=== PATIENT | female | born 1970 | race Caucasian/White ===

== ENCOUNTER 2017-04-25 10:56 | Emergency (ER) | payer BC ==
[2017-04-25 11:20] VITALS: BP 113/79
--- NOTE | 2017-04-25 11:57 | RAD ---
INDICATION: Left knee pain. TECHNIQUE: 4 views of the left knee were obtained. FINDINGS: The bones are in normal alignment. No joint effusion or fracture is seen. Joint spaces appear maintained. IMPRESSION: NEGATIVE EXAM.
--- NOTE | 2017-04-25 12:41 | UC ---
Knee Pain HPI - HPI Summary HPI Summary: LEFT KNEE (LATERAL PATELLAR) PAIN OVER THE LAST TWO WEEKS; HISTORY OF LEFT KNEE SURGERY 23 YEARS AGO. NO KNOWN TRAUMA. PATIENT IS A RUNNER. - History of Current Complaint Chief Complaint: UCLowerExtremity Stated Complaint: KNEE PAIN Time Seen by Provider: 04/25/17 11:22 Hx Obtained From: Patient Hx Last Menstrual Period: 04/18/17 Onset/Duration: Gradual Onset, Lasting Weeks, Still Present, Worse Since - DAILY Severity Currently: Mild Pain Intensity: 0 Pain Scale Used: 0-10 Numeric Character: Dull, Aching Aggravating Factor(s): Movement, Weight Bearing Alleviating Factor(s): Rest, Position Able to Bear Weight: Yes - Risk Factors Septic Arthritis Risk Factor: Negative Gout Risk Factor: Negative - Allergies/Home Medications Allergies/Adverse Reactions: Allergies Allergy/AdvReac Type Severity Reaction Status Date / Time Amoxicillin Allergy Severe See Comment Verified 04/25/17 11:07 Penicillins Allergy Severe See Comment Verified 04/25/17 11:07 Home Medications: Home Medications buPROPion TAB* [Wellbutrin TAB*] 300 mg PO DAILY 04/25/17 [History Confirmed 09/10] PMH/Surg Hx/FS Hx/Imm Hx Previously Healthy: Yes Other History Of: Negative For: HIV, Hepatitis B, Hepatitis C, Anticoagulant Therapy - Surgical History Surgical History: Yes Surgery Procedure, Year, and Place: ARTHROSCOPIC SURGERY LEFT KNEE 1993 LEEP PROCEDURE 1993 RIGHT HAND SURGERY 2011 WISDOM TEETH REMOVED 1987 - Family History Known Family History: Positive: Unknown - adpoted Family History: UNKNOWN - ADOPTED - Social History Occupation: Employed Full-time Lives: With Family Alcohol Use: Occasionally Alcohol Amount: 1 PER DAY Substance Use Type: None Smoking Status (MU): Never Smoked Tobacco Have You Smoked in the Last Year: No Review of Systems Constitutional: Negative Skin: Negative Eyes: Negative ENT: Negative Respiratory: Negative Cardiovascular: Negative Gastrointestinal: Negative Genitourinary: Negative Motor: Negative Neurovascular: Negative Musculoskeletal: Arthralgia, Myalgia Neurological: Negative Psychological: Negative All Other Systems Reviewed And Are Negative: Yes Physical Exam Triage Information Reviewed: Yes Appearance: Well-Appearing, No Pain Distress, Well-Nourished Vital Signs: Initial Vital Signs Temp 98.3 F 04/25/17 11:08 Pulse 63 04/25/17 11:08 Resp 16 04/25/17 11:08 BP 113/79 04/25/17 11:08 Pulse Ox 100 04/25/17 11:08 Vital Signs Reviewed: Yes ENT Exam: Normal Dental Exam: Normal Neck exam: Normal Neck: Positive: Supple, Nontender, No Lymphadenopathy Respiratory Exam: Normal Respiratory: Positive: Chest non-tender, Lungs clear, Normal breath sounds, No respiratory distress Cardiovascular Exam: Normal Cardiovascular: Positive: RRR, No Murmur, Pulses Normal, Brisk Capillary Refill Abdominal Exam: Normal Musculoskeletal: Positive: Strength Intact, ROM Intact, No Edema, Other: - LATERAL PATELLAR PAIN LEFT KNEE Neurological Exam: Normal Psychological Exam: Normal Skin Exam: Normal Knee Pain Course/Dx - Differential Dx/Diagnosis Differential Diagnosis/HQI/PQRI: Internal Derangement Of Knee, Sprain, Strain Provider Diagnoses: LEFT KNEE SPRAIN Discharge - Discharge Plan Condition: Stable Disposition: HOME Patient Education Materials: Knee Sprain (ED) Referrals: Nino Fraire MD [Medical Doctor] - Mayda Weeks MD [Primary Care Provider] - Additional Instructions: PHYSICAL THERAPY REFERRAL: You have been prescribed physical therapy. Treatments may include stretching, exercise, application of heat or cold, and other modalities. After an injury, PT can reduce swelling and pain. In recovery, PT is used to restore mobility and strength. Your specific treatment goals are: ___x__ Reduction of Swelling (EGS, US, ice as needed) __x___ Pain Reduction (EGS, US, ice as needed) TENS Pack Fitting and Instruction Wound Hydrotherapy __x___ Preservation of Mobility ___x__ Shinto of Mobility __x___ Strength Shinto ___x__ Work or Sports Hardening This instruction sheet also serves as your PHYSICAL THERAPY REFERRAL! Please take it with you to the therapist, so he/she will be aware of your diagnosis and treatment plan. You may see the physical therapist of your choice for these treatments, but may wish to check with your insurance to be sure the provider you select is covered. It's important to see the doctor to whom you have been referred for follow up.
== END 2017-04-25 12:28 | disposition home or self-care (01) ==
LOC: UCEAST 10:56
DX: S83.92XA Sprain of unspecified site of left knee, initial encounter (principal); X58.XXXA Exposure to other specified factors, initial encounter; Y93.9 Activity, unspecified; Y92.9 Unspecified place or not applicable; Z88.0 Allergy status to penicillin
CPT/HCPCS: 99212; G0463

== ENCOUNTER 2017-09-03 09:23 | Emergency (ER) | payer BC ==
[2017-09-03 09:36] VITALS: BP 124/83
--- NOTE | 2017-09-03 10:00 | UC ---
Chacorta Self Abhishek, scribed for Chyna Morales MD on 09/03/17 at 0944 . Skin Complaint HPI - HPI Summary HPI Summary: This patient is a 47 year old F presenting to [facility] with a chief complaint of a red area since a couple of days. The area of the reddness is located on the the right heel and is described to be red and containing a black spot in the middle. The skin complaint is stated to be painful upon palpation. small scab. no drainage. Pt states the symptoms are worsening (area is progressively becoming larger and redder). The patient rates the pain 1/10 in severity. Symptoms aggravated by pts shoes. Symptoms alleviated by nothing. no analgesia taken. No drainage from the area. No known fb. Pt was at her mechanist office earlier today and they referred her here for further eval. Medications Reviewed during this visit. - History of Current Complaint Chief Complaint: UCLowerExtremity Stated Complaint: RAISED SKIN ON HEEL Hx Obtained From: Patient ?: No Onset/Duration: Gradual Onset - since a few days ago, Lasting Days Skin Exposure Onset/Duration: Days Ago - a few days ago Current Severity: Mild Pain Intensity: 1 Pain Scale Used: 0-10 Numeric Location: Foot (Right) - right heel Character: Swelling, Redness, Raised, Painful Aggravating Factor(s): Clothing - shoes Alleviating Factor(s): Nothing Associated Signs & Symptoms: Positive: Diaphoresis. Negative: Drainage - Allergy/Home Medications Allergies/Adverse Reactions: Allergies Allergy/AdvReac Type Severity Reaction Status Date / Time Amoxicillin AdvReac Severe See Comment Verified 09/03/17 09:30 Penicillins AdvReac Severe See Comment Verified 09/03/17 09:30 Home Medications: Home Medications Magnesium 09/03/17 [History] cloNIDine TAB* [Catapres 0.1 MG TAB*] 09/03/17 [History] Review of Systems Constitutional: Other - diaphoresis Skin: Rash - right heel (red, raised, containing a black spot, no drainage, and painful). Negative bleeding from area of wound ENT: Negative Respiratory: Negative Cardiovascular: Negative Gastrointestinal: Negative Genitourinary: Negative Motor: Negative Musculoskeletal: Negative Neurological: Negative Psychological: Negative All Other Systems Reviewed And Are Negative: Yes PMH/Surg Hx/FS Hx/Imm Hx Previously Healthy: Yes Psychological History: Depression Other Cancer History: No Hx of Cancer Other History Of: Negative For: HIV, Hepatitis B, Hepatitis C, Anticoagulant Therapy - Surgical History Surgical History: Yes Surgery Procedure, Year, and Place: ARTHROSCOPIC SURGERY LEFT KNEE 1993;. LEEP PROCEDURE 1993;. RIGHT HAND SURGERY 2010;. WISDOM TEETH REMOVED 1987;. KIDNEY STONES STENT PLACED/REMOVAL 2014; - Family History Known Family History: Negative: Hypertension, Diabetes - Social History Occupation: Employed Full-time Lives: With Family Alcohol Use: Occasionally Alcohol Amount: 1 PER DAY Substance Use Type: None Smoking Status (MU): Never Smoked Tobacco Have You Smoked in the Last Year: No Physical Exam Triage Information Reviewed: Yes Appearance: Well-Appearing, No Pain Distress, Well-Nourished Vital Signs: Initial Vital Signs Temp 97.2 F 09/03/17 09:31 Pulse 60 09/03/17 09:31 Resp 16 09/03/17 09:31 BP 124/83 09/03/17 09:31 Pulse Ox 100 09/03/17 09:31 Eyes: Positive: Conjunctiva Clear ENT: Positive: Hearing grossly normal Dental Exam: Normal Neck: Positive: Supple, Nontender, No Lymphadenopathy Respiratory: Positive: No respiratory distress, No accessory muscle use Cardiovascular: Positive: Other: - 2+ DP, PT CBT < 2 sec Musculoskeletal Exam: Normal Neurological Exam: Normal Psychological Exam: Normal Skin: Positive: Other - Right heel Pt with quarter size area of erythema with small scab in center. No fluctuance, no warmth, no red streaking mild TTP with palpation Diagnostics - Radiology US Soft tissue Radiology Interpretation Completed By: Radiologist - US Soft tissue reveals SOFT TISSUE SWELLING, NO FOREIGN BODY IS SEEN. ED physician has reviewed this radiology report and agrees. Heel X-ray Radiology Interpretation Completed By: Radiologist - Heel X-ray reveals Soft tissue swelling without definite evidence of foreign body. ED physician has reviewed this radiology report and agrees. Course/Dx - Course Course Of Treatment: pt with area of erythema with mild discomfort. Apparent small central scab. no drainage, no fluctance. Will check xray. ultrasound for fb. anticipate epsom salt soaks, abx reassess. pt comfortable and in agreement with plan - Diagnoses Provider Diagnoses: heel wound Discharge - Discharge Plan Condition: Stable Disposition: HOME Patient Education Materials: Acute Wound Care (ED) Referrals: Mayda Weeks MD [Primary Care Provider] - Additional Instructions: - soak in warm epsom salt bath 2 times a day. Pat dry - Apply thin layer of antibiotic ointment and bandage after soaking - okay to alternate ibuprofen (Advil, Motrin) and Tylenol every 3 hours for pain - Take antibiotics as prescribed until gone - If you develop increased pain, drainage, red streaking, odor, fever or any other concerns - it is recommended you contact your doctor, return here or go to the emergency department - avoid wearing shoes that rub on this area. Alternatively, put a bulky soft object such as a sock or gauze to prevent rubbing The documentation as recorded by the Chacorta martin Abhishek accurately reflects the service I personally performed and the decisions made by me, Chyna Morales MD.
--- NOTE | 2017-09-03 10:21 | RAD ---
INDICATION: Right heel soft tissue swelling, possible foreign body. COMPARISON: There are no prior studies available for comparison. TECHNIQUE: Multiple real-time images of the right calcaneus were obtained. FINDINGS: There is a focal area of soft tissue swelling located along the posterior aspect of the calcaneus. There is a superficial small black spot visible in the center of the area swelling possibly representing an insect bite. No foreign body is seen. IMPRESSION: SOFT TISSUE SWELLING, NO FOREIGN BODY IS SEEN.
--- NOTE | 2017-09-03 10:48 | RAD ---
Indication: Right heel edema evaluate for foreign body. 3 views of the right calcaneus demonstrates no evidence of radiopaque foreign body. A small inferior calcaneal spur is noted at the Achilles tendon insertion. IMPRESSION: Soft tissue swelling without definite evidence of foreign body.
== END 2017-09-03 10:54 | disposition home or self-care (01) ==
LOC: UCEAST 09:23
DX: S91.301A Unspecified open wound, right foot, initial encounter (principal); X58.XXXA Exposure to other specified factors, initial encounter; Y92.9 Unspecified place or not applicable; M79.89 Other specified soft tissue disorders; Z88.0 Allergy status to penicillin; Z88.3 Allergy status to other anti-infective agents
CPT/HCPCS: 99212; G0463

== ENCOUNTER 2017-09-11 16:31 | Emergency (ER) | payer BC ==
[2017-09-11] MEDS ORDERED: Nitroglycerin TAB 0.4 MG* 0.4 MG TAB SL ONE (17:03)
[2017-09-11] MEDS ORDERED: Aspirin Low Dose CHEW TAB* 81 MG PO ONE (17:03)
[2017-09-11] MEDS ORDERED: NS 0.9% 1000 ML* 1,000 ML IV SCH (17:15)
--- NOTE | 2017-09-11 17:43 | RAD ---
Indication: Chest pain. Single frontal view of the chest performed at 1715 hours was reviewed. Comparison is made with previous exam dated August 12, 2015. No mediastinal shift is noted. Heart is of normal size and configuration. Lung henderson appear clear. IMPRESSION: NO ACTIVE CARDIOPULMONARY DISEASE IS NOTED.
[2017-09-11 17:47] LABS: ABS Basophils 0 10^3/ul (0-0.2); ABS Eosinophils 0.1 10^3/ul (0-0.6); ABS Lymphocytes 2.3 10^3/ul (1.0-4.8); ABS Monocytes 0.5 10^3/ul (0-0.8); ABS Neutrophils 3.9 10^3/ul (1.5-7.7); ABS Nucleated RBC 0 10^3/ul; Eosinophil % 1.1 % (0-6); Hematocrit 40 % (35-47); Hemoglobin 13.4 g/dl (12.0-16.0); Mean Corpuscular HGB Conc 34 g/dl (31-36); Mean Corpuscular Hemoglobin 28 pg (27-31); Mean Corpuscular Volume 84 fL (80-97); Mean Platelet Volume 8 um3 (7.4-10.4); Nucleated Red Blood Cells % 0; Platelet Count 234 10^3/ul (150-450); Red Blood Count 4.73 10^6/ul (4.0-5.4); Red Cell Distribution Width 14 % (10.5-15); White Blood Count 6.8 10^3/ul (3.5-10.8)
[2017-09-11 17:58] LABS: EGFR Non-African American 70.7 (>60)
[2017-09-11 18:09] LABS: INR 0.93 (0.77-1.02)
[2017-09-11] MEDS ORDERED: Al Hydrox/Mg Hydrox/Simet LIQ* 30 ML UDC PO ONE (18:10)
[2017-09-11] MEDS ORDERED: Lidocaine 2% VISCOUS* 15 ML UDC PO ONE (18:10)
--- NOTE | 2017-09-11 19:30 | ED ---
Karyn Self Thomas, scribed for Lamont Li MD on 09/11/17 at 1714 . HPI Chest Pain - HPI Summary HPI Summary: The patient is a 47 year old female presenting to the emergency department complaining of self-described panic attacks that have been occurring each day at approximately 14:00 since two days ago. The patient describes a feeling of panic, shortness of breath, and chest pain that radiates to her left arm. She additionally complains of left arm numbness. The severity of the pain at its worst was a 10/10 but decreased to a 7/10 in the emergency department. The pain is described as a pressure on her chest. Breathing techniques and movement alleviate her symptoms, while being seated aggravates her symptoms. The patient started a new oral contraceptive four days ago which caused her blood pressure to rise and led to her panic attacks. She had several episodes of shortness of breath last week and additionally complains of nausea and hot flashes last night and burping today. She denies nausea in the ED, leg pain, and abdominal pain. She denies history of blood clots, hypertension, and diabetes. - History of Current Complaint Chief Complaint: EDChestPainROMI Time Seen by Provider: 09/11/17 16:39 Hx Obtained From: Patient Hx Last Menstrual Period: 04/18/17 Onset/Duration: Started Days Ago - Two days ago., Still Present Timing: Lasting Days - two days. Initial Severity: Moderate Current Severity: Moderate Pain Intensity: 8 Pain Scale Used: 0-10 Numeric Chest Pain Location: Diffuse - radiates down left arm to 5th finger Chest Pain Radiates: Yes Chest Pain Radiates To:: Arm - Left arm down to 5th finger Character: Pressure/Squeezing - Pressure Aggravating Factor(s): Rest Alleviating Factor(s): Other: - Breathing techniques and movement Associated Signs and Symptoms: Positive: Negative - She denies nausea in the ED , leg pain, and abdominal pain., Chest Pain, Anxiety, Numbness, Shortness of Breath, Nausea - She had nausea last night but no nausea in the emergency department., Other: - Hot flashes and burping - Allergy/Home Medications Allergies/Adverse Reactions: Allergies Allergy/AdvReac Type Severity Reaction Status Date / Time Amoxicillin AdvReac Severe See Comment Verified 09/03/17 09:30 Penicillins AdvReac Severe See Comment Verified 09/03/17 09:30 Home Medications: Home Medications BuPROPion XL* [Bupropion XL*] 300 mg PO DAILY 09/11/17 [History Confirmed ] Magnesium [Magnesium] 400 mg PO DAILY 09/11/17 [History Confirmed 09/11/17] Norethindrone Acetate-Ethinyl [Lo Loestrin Fe 1 mg-10 Mcg / 10 Mcg] 1 tab PO DAILY 09/11/17 [History Confirmed 09/11/17] cloNIDine TAB* [Catapres 0.1 MG TAB*] 0.2 mg PO DAILY 09/11/17 [History Confirmed 09/11/17] PMH/Surg Hx/FS Hx/Imm Hx Endocrine/Hematology History: Denies: Hx Anticoagulant Therapy, Hx Diabetes, Hx Thyroid Disease Cardiovascular History: Denies: Hx Hypertension, Hx Pacemaker/ICD, Hx Peripheral Vascular Disease, Other Cardiovascular Problems/Disorders Respiratory History: Denies: Hx Asthma, Hx Chronic Obstructive Pulmonary Disease (COPD), Hx Lung Cancer, Hx Pneumonia, Hx Pulmonary Embolism GI History: Denies: Hx Gall Bladder Disease, Hx Gastrointestinal Bleed, Hx Ulcer, Hx Urosepsis History: Reports: Hx Kidney Stones - KIDNEY STONES Denies: Hx Renal Disease Musculoskeletal History: Denies: Hx Arthritis, Hx Rheumatoid Arthritis, Hx Osteoporosis, Hx Scoliosis Sensory History: Denies: Hx Cataracts, Hx Contacts or Glasses, Hx Glaucoma, Hx Hearing Aid Opthamlomology History: Denies: Hx Cataracts, Hx Contacts or Glasses, Hx Glaucoma Neurological History: Reports: Hx Headaches - DAILY CHRONIC HEADACHES Denies: Hx Dementia, Hx Migraine, Hx Seizures, Hx Transient Ischemic Attacks (TIA), Other Neuro Impairments/Disorders Psychiatric History: Reports: Hx Depression Denies: Hx Anxiety, Hx Panic Disorder, Hx Schizophrenia, Hx Bipolar Disorder - Cancer History Hx Chemotherapy: No Hx Radiation Therapy: No - Surgical History Surgery Procedure, Year, and Place: ARTHROSCOPIC SURGERY LEFT KNEE 1993;. LEEP PROCEDURE 1993;. RIGHT HAND SURGERY 2010;. WISDOM TEETH REMOVED 1987;. KIDNEY STONES STENT PLACED/REMOVAL 2014; Hx Anesthesia Reactions: No - Immunization History Date of Tetanus Vaccine: Unk Date of Influenza Vaccine: Philosophically opposed Infectious Disease History: No Infectious Disease History: Denies: Hx Clostridium Difficile, Hx Hepatitis, Hx Human Immunodeficiency Virus (HIV), Hx of Known/Suspected MRSA, Hx Shingles, Hx Tuberculosis, Hx Known/ Suspected VRE, Hx Known/Suspected VRSA, History Other Infectious Disease, Traveled Outside the [place] in Last 30 Days - Family History Known Family History: Positive: Unknown - adpoted Negative: Hypertension, Diabetes Family History: UNKNOWN - ADOPTED - Social History Alcohol Use: Occasionally Alcohol Amount: 1 PER DAY Substance Use Type: Reports: None Smoking Status (MU): Never Smoked Tobacco Have You Smoked in the Last Year: No Review of Systems Positive: Chest Pain Positive: Shortness Of Breath Positive: Nausea - She had nausea last night but denies nausea in the ED. Negative: Abdominal Pain Negative: Other - Leg pain Positive: Numbness All Other Systems Reviewed And Are Negative: Yes Physical Exam - Summary Physical Exam Summary: General: well-appearing, mild pain distress Skin: warm, color reflects adequate perfusion, dry Head: normal Eyes: EOMI, CHRISTINE ENT: normal Neck: supple, nontender Respiratory: CTA, breath sounds present Cardiovascular: RRR Abdomen: soft, nontender Bowel: present Musculoskeletal: normal, strength/ROM intact Neurological: normal, sensory/motor intact, A&O x3 Psychological: affect/mood appropriate Triage Information Reviewed: Yes Vital Signs On Initial Exam: Initial Vitals Temp Pulse Resp BP Pulse Ox 97.6 F 63 20 137/75 100 09/11/17 16:33 09/11/17 16:33 09/11/17 16:33 09/11/17 16:33 09/11/17 16:33 Vital Signs Reviewed: Yes - [place] Coma Scale Coma Scale Total: 15 Diagnostics - Vital Signs Vital Signs Temp Pulse Resp BP Pulse Ox 09/11/17 16:52 62 7 100 09/11/17 16:49 159/84 09/11/17 16:33 97.6 F 63 20 137/75 100 - Laboratory Lab Results: Lab Results 09/11/17 09/11/17 09/11/17 Range/Units 17:25 17:25 17:25 WBC (3.5-10.8) 10^3/ul RBC (4.0-5.4) 10^6/ul Hgb (12.0-16.0) g/dl Hct (35-47) % MCV (80-97) fL MCH (27-31) pg MCHC (31-36) g/dl RDW (10.5-15) % Plt Count (150-450) 10^3/ul MPV (7.4-10.4) um3 Neut % (Auto) (38-83) % Lymph % (Auto) (25-47) % [place] % (Auto) (1-9) % Eos % (Auto) (0-6) % Baso % (Auto) (0-2) % Absolute Neuts (auto) (1.5-7.7) 10^3/ul Absolute Lymphs (auto) (1.0-4.8) 10^3/ul Absolute Monos (auto) (0-0.8) 10^3/ul Absolute Eos (auto) (0-0.6) 10^3/ul Absolute Basos (auto) (0-0.2) 10^3/ul Absolute Nucleated RBC 10^3/ul Nucleated RBC % INR (Anticoag Therapy) 0.93 (0.77-1.02) APTT 29.7 (26.0-36.3) seconds D-Dimer, Quantitative < 200 (Less Than 230) ng/mL Sodium 135 (133-145) mmol/L Potassium 4.1 (3.5-5.0) mmol/L Chloride 101 (101-111) mmol/L Carbon Dioxide 29 (22-32) mmol/L Anion Gap 5 (2-11) mmol/L BUN 15 (6-24) mg/dL Creatinine 0.86 (0.51-0.95) mg/dL Est GFR ( Amer) 91.0 (>60) Est GFR (Non-Af Amer) 70.7 (>60) BUN/Creatinine Ratio 17.4 (8-20) Glucose 97 (70-100) mg/dL Lactic Acid (0.5-2.0) mmol/L Calcium 9.7 (8.6-10.3) mg/dL Magnesium 2.3 (1.9-2.7) mg/dL Total Bilirubin 0.30 (0.2-1.0) mg/dL AST 23 (13-39) U/L ALT 32 (7-52) U/L Alkaline Phosphatase 54 (34-104) U/L Total Creatine Kinase 52 (10-223) U/L CK-MB (CK-2) 1.1 (0.6-6.3) ng/mL Troponin I 0.00 (<0.04) ng/mL C-Reactive Protein 10.69 H (< 5.00) mg/L B-Natriuretic Peptide 37 ( - 100) pg/mL Total Protein 6.9 (6.4-8.9) g/dL Albumin 4.2 (3.2-5.2) g/dL Globulin 2.7 (2-4) g/dL Albumin/Globulin Ratio 1.6 (1-3) Lipase 55 (11.0-82.0) U/L TSH 2.14 (0.34-5.60) mcIU/mL Beta HCG, Quant 0.71 mIU/mL 09/11/17 09/11/17 Range/Units 17:25 17:25 WBC 6.8 (3.5-10.8) 10^3/ul RBC 4.73 (4.0-5.4) 10^6/ul Hgb 13.4 (12.0-16.0) g/dl Hct 40 (35-47) % MCV 84 (80-97) fL MCH 28 (27-31) pg MCHC 34 (31-36) g/dl RDW 14 (10.5-15) % Plt Count 234 (150-450) 10^3/ul MPV 8 (7.4-10.4) um3 Neut % (Auto) 57.6 (38-83) % Lymph % (Auto) 33.0 (25-47) % [place] % (Auto) 8.0 (1-9) % Eos % (Auto) 1.1 (0-6) % Baso % (Auto) 0.3 (0-2) % Absolute Neuts (auto) 3.9 (1.5-7.7) 10^3/ul Absolute Lymphs (auto) 2.3 (1.0-4.8) 10^3/ul Absolute Monos (auto) 0.5 (0-0.8) 10^3/ul Absolute Eos (auto) 0.1 (0-0.6) 10^3/ul Absolute Basos (auto) 0 (0-0.2) 10^3/ul Absolute Nucleated RBC 0 10^3/ul Nucleated RBC % 0 INR (Anticoag Therapy) (0.77-1.02) APTT (26.0-36.3) seconds D-Dimer, Quantitative (Less Than 230) ng/mL Sodium (133-145) mmol/L Potassium (3.5-5.0) mmol/L Chloride (101-111) mmol/L Carbon Dioxide (22-32) mmol/L Anion Gap (2-11) mmol/L BUN (6-24) mg/dL Creatinine (0.51-0.95) mg/dL Est GFR ( Amer) (>60) Est GFR (Non-Af Amer) (>60) BUN/Creatinine Ratio (8-20) Glucose (70-100) mg/dL Lactic Acid 0.8 (0.5-2.0) mmol/L Calcium (8.6-10.3) mg/dL Magnesium (1.9-2.7) mg/dL Total Bilirubin (0.2-1.0) mg/dL AST (13-39) U/L ALT (7-52) U/L Alkaline Phosphatase (34-104) U/L Total Creatine Kinase (10-223) U/L CK-MB (CK-2) (0.6-6.3) ng/mL Troponin I (<0.04) ng/mL C-Reactive Protein (< 5.00) mg/L B-Natriuretic Peptide ( - 100) pg/mL Total Protein (6.4-8.9) g/dL Albumin (3.2-5.2) g/dL Globulin (2-4) g/dL Albumin/Globulin Ratio (1-3) Lipase (11.0-82.0) U/L TSH (0.34-5.60) mcIU/mL Beta HCG, Quant mIU/mL Result Diagrams: 09/11/17 17:25 09/11/17 17:25 Lab Statement: Any lab studies that have been ordered have been reviewed, and results considered in the medical decision making process. - Radiology CXR Xray Interpretation: No Acute Changes - NO ACTIVE CARDIOPULMONARY DISEASE IS NOTED. Dr. Li has reviewed this report. Radiology Interpretation Completed By: Radiologist - EKG 16:38 Cardiac Rate: NL EKG Rhythm: Sinus Rhythm - [address] Segment: Normal Ectopy: None Chest Pain Course/Dx - Course Course Of Treatment: Medications reviewed. Allergies noted. BP noted and advised follow up with PMD. CHEST PAIN AND BP DECREASED AFTER NTG SL (CHEST PAIN WENT FROM 7/10 TO 5/10). CHEST PAIN WENT AWAY AFTER GI COCKTAIL (5/10 TO 0 /10). DISCUSSED ADMISSION; PATIENT DECLINED ADMISSION. SHE ALSO DECLINED A REPEAT TROPONIN TO BE DONE 6 HOURS AFTER HER CHEST PAIN ONSET. SHE PREFERS TO GO HOME AND F/U WITH HER PMD; SHE WILL RETURN IF WORSE. - Diagnoses Provider Diagnoses: Blood pressure elevated without history of HTN, Chest pain Discharge - Discharge Plan Condition: Stable Disposition: HOME Patient Education Materials: Chest Pain (ED) Referrals: Mayda Weeks MD [Primary Care Provider] - Additional Instructions: FOLLOW UP WITH YOUR DOCTOR FOR YOUR CHEST PAIN. CALL TOMORROW TO ARRANGE A CARDIAC STRESS TEST. RETURN TO THE EMERGENCY DEPARTMENT FOR ANY WORSENING OF YOUR CONDITION; CHEST PAIN, SHORTNESS OF BREATH, YOU FEEL ILL OR QUESTIONS OR CONCERNS. The documentation as recorded by the Karyn martin Thomas accurately reflects the service I personally performed and the decisions made by me, Lamont Li MD.
[2017-09-11 19:51] VITALS: BP 124/84
== END 2017-09-11 19:50 | disposition home or self-care (01) ==
LOC: ED 16:31
DX: R03.0 Elevated blood-pressure reading, without diagnosis of hypertension (principal); R07.9 Chest pain, unspecified; R06.02 Shortness of breath; R11.0 Nausea; R20.0 Anesthesia of skin
CPT/HCPCS: 36415; 71045; 80053; 82550; 82553; 83605; 83690; 83735; 83880; 84443; 84484; 84702; 85025; 85379; 85610; 85730; 86140; 93005; 99284; A9270-GY

== ENCOUNTER 2018-05-22 15:57 | Emergency (ER) | payer BC ==
[2018-05-22 16:15] VITALS: BP 121/75
--- NOTE | 2018-05-22 17:13 | UC ---
Abdominal Pain Female HPI - HPI Summary HPI Summary: 48-year-old female presents for right upper quadrant pain and bloating that started earlier today. Describes as a constant sharp pain. Nonradiating. Denies alleviating or aggravating factors. She reports that 5 days ago she developed a hemorrhoid that she's been treating with Preparation H. Today noticed a small amount of bright red blood on the toilet paper when she wiped. Denies fever, chills, nausea, vomiting, diarrhea, blood in stool, melena, dysuria, urgency, frequency, hematuria, vaginal discharge. She is perimenopausal. Reports had a normal formed bowel movement this morning. She was evaluated in February of this year for possible biliary disease including an ultrasound which showed mild hepatomegaly with fatty infiltration of the liver otherwise was normal. - History of Current Complaint Chief Complaint: UCGI Stated Complaint: GI PAIN Time Seen by Provider: 05/22/18 16:41 Hx Obtained From: Patient Hx Last Menstrual Period: 05/04/18 ?: No - Not presently sexually active Severity Currently: Moderate Pain Intensity: 6 Location: Discrete At: RUQ Radiates: No Character: Sharp Aggravating Factor(s): Nothing Alleviating Factor(s): Nothing Associated Signs and Symptoms: Negative: Fever, Cough, Chest Pain, Back Pain, Constipation, Blood in Stool, Urinary Symptoms, Vaginal Bleeding, Vaginal Discharge, Nausea, Vomiting, Diarrhea Allergies/Adverse Reactions: Allergies Allergy/AdvReac Type Severity Reaction Status Date / Time amoxicillin Allergy See Comment Verified 05/22/18 16:17 Penicillins Allergy See Comment Verified 05/22/18 16:17 PMH/Surg Hx/FS Hx/Imm Hx Previously Healthy: Yes Psychological History: Depression Other History Of: Negative For: HIV, Hepatitis B, Hepatitis C, Anticoagulant Therapy - Surgical History Surgical History: Yes Surgery Procedure, Year, and Place: ARTHROSCOPIC SURGERY LEFT KNEE 1993;. LEEP PROCEDURE 1993;. RIGHT HAND SURGERY 2010;. WISDOM TEETH REMOVED 1987;. KIDNEY STONES STENT PLACED/REMOVAL 2014; - Family History Known Family History: Positive: Unknown - adpoted Family History: UNKNOWN - ADOPTED - Social History Occupation: Employed Full-time Lives: With Family Alcohol Use: Occasionally Alcohol Amount: 1 PER DAY Substance Use Type: None Smoking Status (MU): Never Smoked Tobacco Have You Smoked in the Last Year: No Review of Systems Constitutional: Negative Respiratory: Negative Cardiovascular: Negative Gastrointestinal: Abdominal Pain, Other - See HPI Genitourinary: Negative Is Patient Immunocompromised?: No All Other Systems Reviewed And Are Negative: Yes Physical Exam Triage Information Reviewed: Yes Appearance: Well-Appearing, No Pain Distress, Well-Nourished Vital Signs: Initial Vital Signs Temp 98.8 F 05/22/18 16:09 Pulse 62 05/22/18 16:09 Resp 16 05/22/18 16:09 BP 121/75 05/22/18 16:09 Pulse Ox 99 05/22/18 16:09 Vital Signs Reviewed: Yes ENT Exam: Normal Neck: Positive: Supple, Nontender Respiratory: Positive: Lungs clear, Normal breath sounds, No respiratory distress Cardiovascular: Positive: RRR, No Murmur Abdomen Description: Positive: Nontender, No Organomegaly, Soft, Other: - Rectal exam declined. Negative: CVA Tenderness (R), CVA Tenderness (L), Distended, Guarding Bowel Sounds: Positive: Present Neurological: Positive: Alert Skin Exam: Normal Diagnostics - Laboratory Diagnostic Studies Completed/Ordered: UA negative Abd Pain Female Course/Dx - Course Course Of Treatment: 48-year-old female presents with 5 day history of a hemorrhoid and onset of abdominal bloating and right upper quadrant pain today. Afebrile. Exam essentially unremarkable. Urinalysis negative. Patient had a workup for possible biliary pathology February of this year including an ultrasound which showed some mild hepatitis with fatty liver stranding but otherwise an unremarkable. Discussed options with patient including ER evaluation versus watchful waiting. Patient is electing for the latter. Reviewed warning symptoms that would require immediate evaluation in the emergency room. Patient verbalizes understanding and agrees with plan of care. - Differential Dx/Diagnosis Differential Diagnosis: Gall Bladder Disease, Hepatitis, Pancreatitis, Renal Colic Provider Diagnoses: RUQ pain, hemorrhoid Discharge - Sign-Out/Discharge Documenting (check all that apply): Patient Departure All imaging exams completed and their final reports reviewed: No Studies - Discharge Plan Condition: Stable Disposition: HOME Patient Education Materials: Acute Abdominal Pain (ED) Referrals: Mayda Weeks MD [Primary Care Provider] - 3 Days (If symptoms persist.) Additional Instructions: The urine test that was performed in the clinic today was normal. There is no indication of an infection or kidney stone. Many times the cause of abdominal pain is unknown. Your exam in the clinic today was fairly unremarkable. I would follow-up with your primary care provider in 3 days if symptoms persist. Seek immediate medical attention in the emergency room if you develop fever greater than 100.5 F, have worsening abdominal pain, persistent vomiting, or any worsening of symptoms. - Billing Disposition and Condition Condition: STABLE Disposition: Home
== END 2018-05-22 17:40 | disposition home or self-care (01) ==
LOC: UCEAST 15:57
DX: R10.11 Right upper quadrant pain (principal); K64.9 Unspecified hemorrhoids; Z88.0 Allergy status to penicillin
CPT/HCPCS: 81003; 99211; G0463

== ENCOUNTER 2018-07-13 15:55 | Emergency (ER) | payer BC ==
--- NOTE | 2018-07-13 16:09 | UC ---
Throat Pain/Nasal Iraj HPI - HPI Summary HPI Summary: 48 yo female presents with sinus pain/pressure/congestion for the last 4 days. She has been taking vitamin C and "upper sorbian herbs" with no relief. She tells me that she has a hx of chronic sinusitis, but has not had a "sinus infection" in the last 1.5 years. Denies fever, chills, sore throat, cough. - History of Current Complaint Chief Complaint: UCGeneralIllness Stated Complaint: SINUS CONGESTION Time Seen by Provider: 07/13/18 16:09 Hx Obtained From: Patient Hx Last Menstrual Period: [id number] Onset/Duration: Gradual Onset Severity: Moderate Pain Intensity: 6 Pain Scale Used: 0-10 Numeric - Allergies/Home Medications Allergies/Adverse Reactions: Allergies Allergy/AdvReac Type Severity Reaction Status Date / Time amoxicillin Allergy See Comment Verified 07/13/18 16:08 Penicillins Allergy See Comment Verified 07/13/18 16:08 PMH/Surg Hx/FS Hx/Imm Hx Psychological History: Anxiety, Depression Other History Of: Negative For: HIV, Hepatitis B, Hepatitis C, Anticoagulant Therapy - Surgical History Surgical History: Yes Surgery Procedure, Year, and Place: ARTHROSCOPIC SURGERY LEFT KNEE 1993;. LEEP PROCEDURE 1993;. RIGHT HAND SURGERY 2010;. WISDOM TEETH REMOVED 1987;. KIDNEY STONES STENT PLACED/REMOVAL 2014; - Family History Known Family History: Positive: Unknown - adpoted Negative: Hypertension, Diabetes Family History: UNKNOWN - ADOPTED - Social History Occupation: Employed Full-time Lives: With Family Alcohol Use: Weekly Alcohol Amount: 1 PER DAY Substance Use Type: None Smoking Status (MU): Never Smoked Tobacco Have You Smoked in the Last Year: No Review of Systems All Other Systems Reviewed And Are Negative: Yes Constitutional: Positive: Negative Skin: Positive: Negative Eyes: Positive: Negative ENT: Positive: Nasal Discharge, Sinus Congestion, Sinus Pain/Tenderness Respiratory: Positive: Negative Cardiovascular: Positive: Negative Gastrointestinal: Positive: Negative Neurovascular: Positive: Negative Neurological: Positive: Negative Psychological: Positive: Negative Physical Exam - Summary Physical Exam Summary: GENERAL: NAD. WDWN. No pain distress. SKIN: No rashes, sores, lesions, or open wounds. HEENT: Head: AT/NC Eyes: EOM intact. Conjunctiva clear without inflammation or discharge. Ears: Hearing grossly normal. TMs intact, no bulging, erythema, or edema. Nose: Nasal mucosa mildly swollen and erythematous with yellow/ clear discharge. TTP maxillary and frontal sinus. Positive post nasal drip Throat: Posterior oropharynx without exudates, erythema, or tonsillar enlargement. Uvula midline. NECK: Supple. Nontender. No lymphadenopathy. CHEST: CTAB. No r/r/w. No accessory muscle use. Breathing comfortably and in no distress. CV: RRR. Without m/r/g. Pulses intact. NEURO: Alert. PSYCH: Age appropriate behavior. Triage Information Reviewed: Yes Vital Signs: Initial Vital Signs Temp 98.7 F 07/13/18 16:00 Pulse 64 07/13/18 16:00 Resp 16 07/13/18 16:00 BP 125/73 07/13/18 16:00 Pulse Ox 100 07/13/18 16:00 Vital Signs Reviewed: Yes Throat Pain/Nasal Course/Dx - Course Course Of Treatment: Sinusitis - Differential Dx/Diagnosis Provider Diagnoses: Sinusitis Discharge - Sign-Out/Discharge Documenting (check all that apply): Patient Departure All imaging exams completed and their final reports reviewed: No Studies - Discharge Plan Condition: Stable Disposition: HOME Prescriptions: Azithromycin TAB* [Zithromax TAB (Z-AYSHA) 250 mg #6 tabs] 2 tab PO .TODAY, THEN 1 DAILY #1 aysha Patient Education Materials: Sinusitis (ED) Referrals: Mayda Weeks MD [Primary Care Provider] - Additional Instructions: If you develop a fever, shortness of breath, chest pain, new or worsening symptoms - please call your PCP or go to the ED. - Billing Disposition and Condition Condition: STABLE Disposition: Home
[2018-07-13 16:24] VITALS: BP 125/73
== END 2018-07-13 16:20 | disposition home or self-care (01) ==
LOC: UCEAST 15:55
DX: J32.9 Chronic sinusitis, unspecified (principal); Z88.0 Allergy status to penicillin
CPT/HCPCS: 99212; G0463

== ENCOUNTER 2018-11-16 16:05 | Emergency (ER) | payer BC ==
[2018-11-16 16:17] VITALS: BP 127/82
--- NOTE | 2018-11-16 16:26 | UC ---
Throat Pain/Nasal Iraj HPI - HPI Summary HPI Summary: 48 y/o female presents to the urgent care c/o sinus pressure, yellowish drainage , sinus pressure and pain w/ a dry cough for the past 10 days. 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 Pain w/ swallowing is 8/ 10. she has had low subjective fever at home w/ chills. Pt has taken OTC medications w/o any improvement. Pt denies dizziness, ear pain,SOB, chest pain, abdominal pain, N/V/d. - History of Current Complaint Chief Complaint: UCRespiratory Stated Complaint: SINUS COMPLAINT Time Seen by Provider: 11/16/18 16:24 Hx Obtained From: Patient Hx Last Menstrual Period: 3 months ago ?: No Onset/Duration: Gradual Onset, Lasting Days - 10 days, Still Present, Worse Since - 2 days w/ sore throat Severity: Moderate Pain Intensity: 8 Pain Scale Used: 0-10 Numeric Cough: Nonproductive Associated Signs & Symptoms: Positive: Dysphagia, Sinus Discomfort, Nasal Discharge - yellowish, Fever - subjective low grade fever at home. Negative: Wheezing - Epiglottits Risk Factors Epiglottis Risk Factors: Negative - Allergies/Home Medications Allergies/Adverse Reactions: Allergies Allergy/AdvReac Type Severity Reaction Status Date / Time amoxicillin Allergy See Comment Verified 11/16/18 16:17 Penicillins Allergy See Comment Verified 11/16/18 16:17 Home Medications: Home Medications Venlafaxine ER (NF) [Effexor ER (NF)] 150 mg PO DAILY 11/16/18 [History Confirmed 11/16/18] guaiFENesin [Mucinex] 1,200 mg PO ONCE PRN 11/16/18 [History Confirmed 11/16/18] PMH/Surg Hx/FS Hx/Imm Hx Previously Healthy: Yes Other Respiratory History: Recurrent sinusitis Other History Of: Negative For: HIV, Hepatitis B, Hepatitis C, Anticoagulant Therapy - Surgical History Surgical History: Yes Surgery Procedure, Year, and Place: ARTHROSCOPIC SURGERY LEFT KNEE 1993;. LEEP PROCEDURE 1993;. RIGHT HAND SURGERY 2010;. WISDOM TEETH REMOVED 1987;. KIDNEY STONES STENT PLACED/REMOVAL 2014;. TONSILLECTOMY 1975; - Family History Known Family History: Positive: Unknown - adpoted Negative: Hypertension, Diabetes Family History: UNKNOWN - ADOPTED - Social History Occupation: Employed Full-time Lives: With Family Alcohol Use: Weekly Alcohol Amount: 1 PER DAY Substance Use Type: None Smoking Status (MU): Never Smoked Tobacco Have You Smoked in the Last Year: No Review of Systems All Other Systems Reviewed And Are Negative: Yes Constitutional: Positive: Negative Skin: Positive: Negative Eyes: Positive: Negative ENT: Positive: Sore Throat, Nasal Discharge - yellowish, Sinus Congestion, Sinus Pain/Tenderness, Other - PND Respiratory: Positive: Cough - dry Cardiovascular: Positive: Negative Gastrointestinal: Positive: Negative Genitourinary: Positive: Negative Motor: Positive: Negative Neurovascular: Positive: Negative Musculoskeletal: Positive: Negative Neurological: Positive: Headache Psychological: Positive: Negative Is Patient Immunocompromised?: No Physical Exam - Summary Physical Exam Summary: Vitals: reviewed General: Well developed, well-nourished male patient with NAD. Head and face: Normocephalic and atraumatic, Positive tenderness over the frontal and maxillary sinuses.. Eyes: PERRLA, EOMI x 2. Normal conjunctiva. No eye discharge. ENT: Ears and TM with normal limits. Nose: edematous and erythematous nasal mucosa with with yellowish discharge and erythematous mucosa. Pharynx with erythema, no exudate. Positive moderate yellowish PND Neck: Supple, no JVD, no carotid bruits and no lymphadenopathy. Lungs: clear, no rales, no rhonchi, no wheezes. CVS: RRR, S1 and S2 present no murmurs or gallops appreciated. Abdomen: soft nontender with positive bowel sounds. Extremities: no edema noted. Neuro: WNL. Skin: warm and dry Triage Information Reviewed: Yes Vital Signs: Initial Vital Signs Temp 98.8 F 11/16/18 16:14 Pulse 68 11/16/18 16:14 Resp 18 11/16/18 16:14 BP 127/82 11/16/18 16:14 Pulse Ox 97 11/16/18 16:14 Throat Pain/Nasal Course/Dx - Course Course Of Treatment: 48 y/o female presents to the urgent care c/o sinus pressure, yellowish drainage , sinus pressure and pain w/ a dry cough for the past 10 days. 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 Pain w/ swallowing is 8/ 10. she has had low subjective fever at home w/ chills. Pt has taken OTC medications w/o any improvement. Pt denies dizziness, ear pain,SOB, chest pain, abdominal pain, N/V/d. Hx obtained. Pt w/ acute bacterial sinusitis and pharyngitis on examination. Rapid strep: negative. Pt with 10 days of symptoms getting worse. Pt PCN allergic. Rx Amoxicillin PO and flonase nasal spray. Discharge instructions explained to Pt. Advised to Return to the clinic or PCP if symptoms do not improve.Pt understood and agreed with plan of care. - Differential Dx/Diagnosis Differential Diagnosis/HQI/PQRI: Influenza, Laryngitis, Mononucleosis, Pharyngitis, Sinusitis, Tonsillitis, URI Provider Diagnosis: Acute bacterial sinusitis, Pharyngitis Discharge - Sign-Out/Discharge Documenting (check all that apply): Patient Departure - d/C home All imaging exams completed and their final reports reviewed: No Studies - Discharge Plan Condition: Stable Disposition: HOME Prescriptions: DOXYcycline CAP(*) [DOXYcycline 100MG CAP(*)] 100 mg PO BID #20 cap Fluticasone NASAL SPRAY 50MCG* [Flonase NASAL SPRAY 50MCG*] 2 spray BOTH NARES DAILY #1 btl Patient Education Materials: Sinusitis (ED) Referrals: Mayda Weeks MD [Primary Care Provider] - 3 Days Additional Instructions: 1- Please increase fluid intake and rest. take full course of antibiotic to avoid resistance. Take yogurt w/ probiotics or culturelle to protect GI system 2-Use Flonase Nasal spray as directed to help drain fluid. Also buy saline drops to clear sinuses 3-Return to the clinic or PCP if symptoms do not improve for further management and treatment - Billing Disposition and Condition Condition: STABLE Disposition: Home
== END 2018-11-16 16:58 | disposition home or self-care (01) ==
LOC: UCEAST 16:05
DX: J01.90 Acute sinusitis, unspecified (principal); B96.89 Other specified bacterial agents as the cause of diseases classified elsewhere; J02.9 Acute pharyngitis, unspecified; Z88.1 Allergy status to other antibiotic agents; Z88.0 Allergy status to penicillin
CPT/HCPCS: 87651; 99212; G0463

== ENCOUNTER 2019-01-05 16:17 | Emergency (ER) | payer BC ==
[2019-01-05 16:29] VITALS: BP 126/90
--- NOTE | 2019-01-05 16:37 | UC ---
Throat Pain/Nasal Iraj HPI - HPI Summary HPI Summary: 49 year old female with 2 day history of nasal congestion with pressure across the bridge of her nose. Has history of seasonal allergies and recurrent sinus infections. States has taken Mucinex x 1 dose yesterday and started fluticasone nasal spray today with little improvement in symptoms. Denies fever, chills, ear pain/pressure, sore throat, or cough. - History of Current Complaint Chief Complaint: UCRespiratory Stated Complaint: SINUS CONGESTION Time Seen by Provider: 01/05/19 16:30 Hx Obtained From: Patient Hx Last Menstrual Period: June 2018 Pain Intensity: 7 - Allergies/Home Medications Allergies/Adverse Reactions: Allergies Allergy/AdvReac Type Severity Reaction Status Date / Time amoxicillin Allergy See Comment Verified 01/05/19 16:22 Penicillins Allergy See Comment Verified 01/05/19 16:22 Home Medications: Home Medications Loratadine [Claritin] 10 mg PO DAILY 01/05/19 [History Confirmed 01/05/19] PMH/Surg Hx/FS Hx/Imm Hx Previously Healthy: Yes Psychological History: Depression Other History Of: Negative For: HIV, Hepatitis B, Hepatitis C, Anticoagulant Therapy - Surgical History Surgical History: Yes Surgery Procedure, Year, and Place: ARTHROSCOPIC SURGERY LEFT KNEE 1993;. LEEP PROCEDURE 1993;. RIGHT HAND SURGERY 2010;. WISDOM TEETH REMOVED 1987;. KIDNEY STONES STENT PLACED/REMOVAL 2014;. TONSILLECTOMY 1975; - Family History Known Family History: Positive: Unknown - adpoted Family History: UNKNOWN - ADOPTED - Social History Occupation: Employed Full-time Lives: With Family Alcohol Use: Occasionally Alcohol Amount: 1 PER DAY Substance Use Type: None Smoking Status (MU): Never Smoked Tobacco Have You Smoked in the Last Year: No Review of Systems All Other Systems Reviewed And Are Negative: Yes Constitutional: Negative: Fever, Chills Eyes: Negative: Drainage, Eye Redness ENT: Positive: Sinus Congestion, Sinus Pain/Tenderness. Negative: Sore Throat, Ear Ache, Nasal Discharge Respiratory: Negative: Shortness Of Breath, Cough Cardiovascular: Negative: Palpitations, Chest Pain Gastrointestinal: Positive: Negative Genitourinary: Positive: Negative Musculoskeletal: Positive: Negative Neurological: Positive: Negative Physical Exam - Summary Physical Exam Summary: GENERAL APPEARANCE: Well developed, well nourished, alert and cooperative, and appears to be in no acute distress. EYES: Conjunctiva clear. No drainage. EARS: External auditory canals and tympanic membranes clear, hearing grossly intact. NOSE: Mild-moderate nasal congestion with mucosal erythema and edema. No nasal discharge. THROAT: Pharynx normal. No tonsilar inflammation, swelling, exudate, or lesions. Uvula midline. Oral cavity normal. Teeth and gingiva in good general condition. NECK: Neck supple, non-tender without lymphadenopathy. CARDIAC: Normal S1 and S2. No S3, S4 or murmurs. Rhythm is regular. There is no peripheral edema, cyanosis or pallor. Extremities are warm and well perfused. Capillary refill is less than 2 seconds. Peripheral pulses intact. LUNGS: Clear to auscultation without rales, rhonchi, wheezing or diminished breath sounds. ABDOMEN: Positive bowel sounds. Soft, nondistended, nontender. No guarding or rebound. No masses or hepatosplenomegally. MUSKULOSKELETAL: ROM intact to all extremities. No joint erythema or tenderness. Normal muscular development. Normal gait. SKIN: Skin normal color, texture and turgor with no lesions or eruptions. Triage Information Reviewed: Yes Vital Signs: Initial Vital Signs Temp 98.1 F 01/05/19 16:23 Pulse 71 01/05/19 16:23 Resp 18 01/05/19 16:23 BP 126/90 01/05/19 16:23 Pulse Ox 97 01/05/19 16:23 Vital Signs Reviewed: Yes Throat Pain/Nasal Course/Dx - Course Course Of Treatment: 49 year old female with 2 day history of nasal congestion with pressure across the bridge of her nose. Has history of seasonal allergies and recurrent sinus infections. States has taken Mucinex x 1 dose yesterday and started fluticasone nasal spray today with little improvement in symptoms. Denies fever, chills, ear pain/pressure, sore throat, or cough. Afebrile. VSS. Exam revealed mild- moderate nasal congestion with mucosal erythema and edema but otherwise unremarkable exam. Discussed with patient that her symptoms likely represent viral vs allergic ethmoid sinusitis and recommend continued symptomatic treatment. She is to follow up with her PCP if symptoms persist. Anticipatory guidance and warning symptoms reviewed with patient. Verbalizes understanding and agrees with POC. - Differential Dx/Diagnosis Differential Diagnosis/HQI/PQRI: Sinusitis, URI Provider Diagnosis: Acute sinusitis Discharge - Sign-Out/Discharge Documenting (check all that apply): Patient Departure All imaging exams completed and their final reports reviewed: No Studies - Discharge Plan Condition: Stable Disposition: HOME Patient Education Materials: Sinusitis (ED) Referrals: Mayda Weeks MD [Primary Care Provider] - 5 Days Additional Instructions: Your history and exam are consistent with a sinus infection. Sinus infections without fever are most often caused by a viral infection or may be related to your seasonal allergies. Viral infections and allergy related sinusitis do not respond to antibiotics and are limited to the treatment of symptoms. Continue to use a saline rinse kit such as Neti Pot or NeilMed at least twice a day to help thin secretions and promote drainage of the sinuses. Continue to use your fluticasone (Flonase) nasal spray 2 sprays each nostril once daily. Use an over the counter combination antihistamine-decongestant such as Claritin D, Zyrtec D, or Yoly D according to directions to help with congestion. Take over the counter acetaminophen (Tylenol) or ibuprofen (Advil, Motrin) according to directions as needed for pain or fever. Follow up with your primary care provider in 5-7 days if symptoms persist. Seek immediate medical attention in the emergency room if you have fever greater than 100.5 F despite taking acetaminophen or ibuprofen, have chest pain , difficulty breathing, are unable to swallow, or have any worsening of symptoms. - Billing Disposition and Condition Condition: STABLE Disposition: Home
== END 2019-01-05 17:04 | disposition home or self-care (01) ==
LOC: UCEAST 16:17
DX: J01.90 Acute sinusitis, unspecified (principal); Z88.0 Allergy status to penicillin
CPT/HCPCS: 99211; G0463